=== PATIENT | male | born 1985 | race Caucasian/White ===

== ENCOUNTER 2019-07-28 12:40 | Emergency (ER) | payer OTHER ==
[~2019-07-28] VITALS: Ht 180.3 cm; Wt 71.9 kg
[2019-07-28] MEDS ORDERED: IBUPROFEN 600 MG TABLET PO ONE (13:30)
[2019-07-28] MEDS ORDERED: IBUPROFEN 600 MG TABLET ONE (13:50)
--- NOTE | 2019-07-28 14:03 | NUR ---
MOTRIN PER MAY. XR +FX. ICE PACK IN PLACE. 05/28 PAIN. VSS. NO NEEDS AT THIS TIME.
--- NOTE | 2019-07-28 14:36 | NUR ---
PLAN FOR CT/SPLINT/DC. NEW ICE PACK APPLIED.
--- NOTE | 2019-07-28 14:51 | NUR ---
Report received from [facility]. Plan of care discussed.
--- NOTE | 2019-07-28 14:51 | NUR ---
report to mihaela sauceda rn. as
[2019-07-28 15:08] VITALS: BP 95/62
[2019-07-28] MEDS ORDERED: NEOSPORIN OINT. PKT 1 PACKET ONE (15:43)
--- NOTE | 2019-07-28 16:02 | NUR ---
PATIENT BEING SPLINTED BY [facility] AT THIS TIME
--- NOTE | 2019-07-28 16:04 | NUR ---
CALL PLACED TO CT TO GET APPROXIMATE TIME THIS PATIENT WILL GO TO CT, THEY STATED HE WILL BE GOING SOON
--- NOTE | 2019-07-28 16:31 | NUR ---
PATIENT TO CT
--- NOTE | 2019-07-28 16:54 | NUR ---
PATIENT GIVEN DISCHARGE PAPERWORK AND INSTRUCTIONS FOR FOLLOW UP. PATIENT EDUCATED ON USE OF CRUTCHES. PATIENT WAITING IN ROOM FOR MOTHER TO COME BACK WITH CLOTHING.
--- NOTE | 2019-07-28 17:04 | NUR ---
PATIENT DEMONSTRATED PROPER USE OF CRUTCHES WHILE WALKING TO DISCHARGE
== END 2019-07-28 17:15 | disposition home or self-care (01) ==
LOC: ED 13:29
DX: S82.51XA Displaced fracture of medial malleolus of right tibia, initial encounter for closed fracture (principal); S82.64XA Nondisplaced fracture of lateral malleolus of right fibula, initial encounter for closed fracture; W18.30XA Fall on same level, unspecified, initial encounter; Y93.89 Activity, other specified; Y92.410 Unspecified street and highway as the place of occurrence of the external cause; Y99.8 Other external cause status
CPT/HCPCS: 29515; 99284